=== PATIENT | male | born 1990 | race Caucasian/White ===

== ENCOUNTER 2018-02-16 12:07 | Inpatient (IN) | payer OTHER ==
[2018-02-16 13:10] VITALS: BMI 22.1
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
[2018-02-16] MEDS ORDERED: LOPERAMIDE HCL 2 MG CAPSULE PO PRN (16:02)
[2018-02-16] MEDS ORDERED: ACETAMINOPHEN 325 MG TABLET (FP) PO PRN (16:02)
[2018-02-16] MEDS ORDERED: hydrOXYzine PAMOATE 50 MG CAPSULE (FP) PO PRN (16:02)
[2018-02-16] MEDS ORDERED: guaiFENesin/D-METHORPHAN HB 10 ML UNIT-DOSE CUPS PO PRN (16:02)
[2018-02-16] MEDS ORDERED: chlordiazePOXIDE HCL 25 MG CAPSULE PO PRN (16:02)
[2018-02-16] MEDS ORDERED: NICOTINE POLACRILEX 2 MG GUM BC PRN (16:02)
[2018-02-16] MEDS ORDERED: MAGNESIUM CITRATE 300 ML BOTTLE PO PRN (16:02)
[2018-02-16] MEDS ORDERED: MAGNESIUM HYDROX 2400MG/30ML ORAL SUSPENSION 30 ML CUP PO PRN (16:02)
[2018-02-16] MEDS ORDERED: IBUPROFEN 400 MG TABLET (FP) PO PRN (16:02)
[2018-02-16] MEDS ORDERED: P-EPHED 60MG/TRIPROLIDI 2.5MG TABLET PO PRN (16:02)
[2018-02-16] MEDS ORDERED: MAG HYDROX/AL HYDROX/SIMETH 30 ML UNIT-DOSE CUP PO PRN (16:02)
[2018-02-16] MEDS ORDERED: chlordiazePOXIDE HCL 25 MG CAPSULE PO ONE (16:02)
[2018-02-16] MEDS ORDERED: MENTHOL/PHENOL 1 EACH UD MM PRN (16:02)
[2018-02-16] MEDS ORDERED: CYCLOBENZAPRINE HCL 10 MG TABLET (FP) PO PRN (16:05)
[2018-02-16] MEDS: chlordiazePOXIDE HCL 25 MG CAPSULE PO SCH ×2 (17:33→22:37)
[2018-02-16] MEDS: NICOTINE 21 MG/24 HOURS TOPICAL PATCH TD SCH (17:38)
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
[2018-02-16] MEDS ORDERED: MELATONIN 5 MG TABLETS PO PRN (22:00)
[2018-02-16] MEDS: traZODone HCL 100 MG TABLET (FP) PO SCH (22:37)
[2018-02-16] MEDS: THIAMINE HCL 100 MG TABLET (FP) PO SCH (22:37)
[2018-02-17 04:57] LABS: URINE APPEARANCE CLEAR; URINE BILIRUBIN NEGATIVE (<2.0 mg/dL); URINE BLOOD NEGATIVE (NEGATIVE); URINE COLOR YELLOW; URINE GLUCOSE (UA) NEGATIVE (NEGATIVE); URINE KETONE 2+ (NEGATIVE); URINE LEUK ESTERASE NEGATIVE (NEGATIVE); URINE NITRITE NEGATIVE (NEGATIVE)
[2018-02-17 05:29] LABS: URINE PROTEIN 1+ (NEGATIVE)
[2018-02-17 05:48] LABS: EPI CELLS RARE /HPF (FEW); URINE MUCUS MANY
[2018-02-17] MEDS: chlordiazePOXIDE HCL 25 MG CAPSULE PO SCH ×5 (06:06→22:13)
[2018-02-17 10:02] LABS: HEMATOCRIT 39.9 % (35.4-49); HEMOGLOBIN 13.5 GM/dL (11.7-16.9); MCH 30.8 pg (25.7-33.7); MEAN CELL VOLUME 90.6 fl (80-96); MEAN PLT VOLUME 8.7 fl (7.5-11.1); PLATELET COUNT 352 K/MM3 (134-434); RDW 12.7 % (11.9-15.9); WHITE BLOOD COUNT 8.8 K/mm3 (4.0-10.0)
[2018-02-17] MEDS: PRENATAL VITAMINS W/ FOLIC ACID TABLET (FP) PO SCH (10:28)
[2018-02-17] MEDS: NICOTINE 21 MG/24 HOURS TOPICAL PATCH TD SCH (10:31)
[2018-02-17 11:15] LABS: ANION GAP 4 (8-16); BLOOD UREA NITROGEN 9 mg/dL (7-18); CALCIUM 9.2 mg/dL (8.5-10.1); CHLORIDE 101 mmol/L (98-107); CO2 31 mmol/L (21-32); CREATININE 0.9 mg/dL (0.7-1.3); GLUCOSE,RANDOM 57 mg/dL (74-106); POTASSIUM 4.3 mmol/L (3.5-5.1); SGOT/AST 43 U/L (15-37); SODIUM 136 mmol/L (136-145)
[2018-02-17 11:42] LABS: ALK PHOS 70 U/L (45-117); BILIRUBIN,TOTAL 0.3 mg/dL (0.2-1.0); SGPT/ALT 81 U/L (12-78); TOT PROT 7.8 g/dl (6.4-8.2)
--- NOTE | 2018-02-17 12:29 | PN ---
[facility] CIWA - CIWA Score Nausea/Vomitin-No Nausea/No Vomiting Muscle Tremors: 4-Moderate,w/Arms Extend Anxiety: 4-Mod. Anxious/Guarded Agitation: 4-Moderately Restless Paroxysmal Sweats: 1-Minimal Palms Moist Orientation: 0-Oriented Tacttile Disturbances: 0-None Auditory Disturbances: 0-None Visual Disturbances: 0-None Headache: 0-None Present CIWA-Ar Total Score: 13 BHS Progress Note (SOAP) Subjective: ANXIETY,SWEATS,IRRITABILITY. Objective: 02/17/18 12:29 Vital Signs Temperature 96.9 F L 02/17/18 09:17 Pulse Rate 62 02/17/18 09:17 Respiratory Rate 18 02/17/18 09:17 Blood Pressure 90/64 02/17/18 09:17 O2 Sat by Pulse Oximetry (%) Laboratory Last Values WBC 8.8 K/mm3 (4.0-10.0) 02/17/18 06:00 RBC 4.40 M/mm3 (4.00-5.60) 02/17/18 06:00 Hgb 13.5 GM/dL (11.7-16.9) 02/17/18 06:00 Hct 39.9 % (35.4-49) 02/17/18 06:00 MCV 90.6 fl (80-96) 02/17/18 06:00 MCH 30.8 pg (25.7-33.7) 02/17/18 06:00 MCHC 34.0 g/dl (32.0-35.9) 02/17/18 06:00 RDW 12.7 % (11.9-15.9) 02/17/18 06:00 Plt Count 352 K/MM3 (134-434) 02/17/18 06:00 MPV 8.7 fl (7.5-11.1) 02/17/18 06:00 Sodium 136 mmol/L (136-145) 02/17/18 06:00 Potassium 4.3 mmol/L (3.5-5.1) 02/17/18 06:00 Chloride 101 mmol/L (98-107) 02/17/18 06:00 Carbon Dioxide 31 mmol/L (21-32) 02/17/18 06:00 Anion Gap 4 (8-16) L 02/17/18 06:00 BUN 9 mg/dL (7-18) 02/17/18 06:00 Creatinine 0.9 mg/dL (0.7-1.3) 02/17/18 06:00 Creat Clearance w eGFR > 60 (>60) 02/17/18 06:00 Random Glucose 57 mg/dL (74-106) L 02/17/18 06:00 Calcium 9.2 mg/dL (8.5-10.1) 02/17/18 06:00 Total Bilirubin 0.3 mg/dL (0.2-1.0) 02/17/18 06:00 AST 43 U/L (15-37) H 02/17/18 06:00 ALT 81 U/L (12-78) H 02/17/18 06:00 Alkaline Phosphatase 70 U/L (45-117) 02/17/18 06:00 Total Protein 7.8 g/dl (6.4-8.2) 02/17/18 06:00 Albumin 4.0 g/dl (3.4-5.0) 02/17/18 06:00 Urine Color Yellow 02/17/18 01:00 Urine Appearance Clear 02/17/18 01:00 Urine pH 5.0 (5.0-8.0) 02/17/18 01:00 Ur Specific [place] 1.029 (1.001-1.035) 02/17/18 01:00 Urine Protein 1+ (NEGATIVE) H 02/17/18 01:00 Urine Glucose (UA) Negative (NEGATIVE) 02/17/18 01:00 Urine Ketones 2+ (NEGATIVE) H 02/17/18 01:00 Urine Blood Negative (NEGATIVE) 02/17/18 01:00 Urine Nitrite Negative (NEGATIVE) 02/17/18 01:00 Urine Bilirubin Negative (<2.0 mg/dL) 02/17/18 01:00 Urine Urobilinogen 2.0 mg/dL (0.2-1.0) 02/17/18 01:00 Ur Leukocyte Esterase Negative (NEGATIVE) 02/17/18 01:00 Urine WBC (Auto) 3 /hpf (3-5) 02/17/18 01:00 Urine RBC (Auto) 2 /hpf (0-3) 02/17/18 01:00 Ur Epithelial Cells Rare /HPF (FEW) 02/17/18 01:00 Urine Mucus Many 02/17/18 01:00 Assessment: 02/17/18 12:29 WITHDRAWAL SX Plan: CONTINUE DETOX INCREASE PO FLUIDS
--- NOTE | 2018-02-17 13:08 | EKG ---
Test Reason : Blood Pressure : / mmHG Vent. Rate : 059 BPM Atrial Rate : 059 BPM P-R Int : 146 ms QRS Dur : 092 ms QT Int : 436 ms P-R-T Axes : 081 071 049 degrees QTc Int : 431 ms SINUS BRADYCARDIA OTHERWISE NORMAL ECG NO PREVIOUS ECGS AVAILABLE Confirmed by ALVARO WORKMAN, RUTH ([id number]) on 02/17/2018 1:08:14 PM Referred By: Confirmed By:RUTH JOHN MD
[2018-02-17] MEDS: traZODone HCL 100 MG TABLET (FP) PO SCH (22:13)
[2018-02-17] MEDS: THIAMINE HCL 100 MG TABLET (FP) PO SCH (22:13)
[2018-02-18] MEDS: chlordiazePOXIDE HCL 25 MG CAPSULE PO SCH ×2 (06:00→12:41)
--- NOTE | 2018-02-18 08:10 | PN ---
[facility] Progress Note Note: Patient's blood pressure was B/P 86/48. Patient is asymptomatic. Vital Signs Temperature 97.8 F 02/18/18 06:23 Pulse Rate 68 02/18/18 07:54 Respiratory Rate 18 02/18/18 07:54 Blood Pressure 94/59 02/18/18 07:54 O2 Sat by Pulse Oximetry (%) Action: Pitcher of water at bedside- Hydration Fall precaution
[2018-02-18] MEDS ORDERED: ONDANSETRON *ODT* 4 MG TABLET SL PRN (12:28)
[2018-02-18] MEDS: NICOTINE 21 MG/24 HOURS TOPICAL PATCH TD SCH (12:41)
[2018-02-18] MEDS: PRENATAL VITAMINS W/ FOLIC ACID TABLET (FP) PO SCH (12:41)
[2018-02-18] MEDS: NAPROXEN 375 MG TABLET (FP) PO SCH ×2 (14:06→22:42)
--- NOTE | 2018-02-18 17:50 | PN ---
S CIWA - CIWA Score Nausea/Vomitin-No Nausea/No Vomiting Muscle Tremors: 2 Anxiety: 5 Agitation: 4-Moderately Restless Paroxysmal Sweats: 3 Orientation: 2-Disoriented Date<2 days Tacttile Disturbances: 2-Mild Itch/Numbness/Burn Auditory Disturbances: 0-None Visual Disturbances: 2-Mild Sensitivity Headache: 0-None Present CIWA-Ar Total Score: 20 B[facility] Progress Note (SOAP) Subjective: Body Aches, Anxious, Sweating, Interrupted Sleep. Objective: PATIENT A & O X 2 (UNCERTAIN ABOUT CURRENT DAY / DATE). PATIENT OBSERVED AMBULATING ON UNIT. NO ACUTE DISTRESS. 02/18/18 17:49 Vital Signs Temperature 97.6 F 02/18/18 14:52 Pulse Rate 55 L 02/18/18 14:52 Respiratory Rate 18 02/18/18 14:52 Blood Pressure 94/55 02/18/18 14:52 O2 Sat by Pulse Oximetry (%) Laboratory Tests 02/17/18 02/17/18 02/17/18 01:00 06:00 06:00 WBC 8.8 RBC 4.40 Hgb 13.5 Hct 39.9 MCV 90.6 MCH 30.8 MCHC 34.0 RDW 12.7 Plt Count 352 MPV 8.7 Sodium 136 Potassium 4.3 Chloride 101 Carbon Dioxide 31 Anion Gap 4 L BUN 9 Creatinine 0.9 Creat Clearance w eGFR > 60 Random Glucose 57 L Calcium 9.2 Total Bilirubin 0.3 AST 43 H ALT 81 H Alkaline Phosphatase 70 Total Protein 7.8 Albumin 4.0 Urine Color Yellow Urine Appearance Clear Urine pH 5.0 Ur Specific [place] 1.029 Urine Protein 1+ H Urine Glucose (UA) Negative Urine Ketones 2+ H Urine Blood Negative Urine Nitrite Negative Urine Bilirubin Negative Urine Urobilinogen 2.0 Ur Leukocyte Esterase Negative Urine WBC (Auto) 3 Urine RBC (Auto) 2 Ur Epithelial Cells Rare Urine Mucus Many RPR Titer 02/17/18 06:00 WBC RBC Hgb Hct MCV MCH MCHC RDW Plt Count MPV Sodium Potassium Chloride Carbon Dioxide Anion Gap BUN Creatinine Creat Clearance w eGFR Random Glucose Calcium Total Bilirubin AST ALT Alkaline Phosphatase Total Protein Albumin Urine Color Urine Appearance Urine pH Ur Specific [place] Urine Protein Urine Glucose (UA) Urine Ketones Urine Blood Urine Nitrite Urine Bilirubin Urine Urobilinogen Ur Leukocyte Esterase Urine WBC (Auto) Urine RBC (Auto) Ur Epithelial Cells Urine Mucus RPR Titer Nonreactive LABS NOTED. Assessment: 02/18/18 17:49 WITHDRAWAL SYMPTOMS. Plan: CONTINUE DETOX. INCREASE DAILY PO FLUID INTAKE.
[2018-02-18] MEDS: chlordiazePOXIDE 5 MG CAPSULE PO SCH ×2 (17:51→23:20)
[2018-02-18] MEDS: traZODone HCL 100 MG TABLET (FP) PO SCH (22:43)
[2018-02-18] MEDS: THIAMINE HCL 100 MG TABLET (FP) PO SCH (22:43)
[2018-02-19] MEDS: chlordiazePOXIDE 5 MG CAPSULE PO SCH ×2 (06:56→10:24)
[2018-02-19] MEDS: NAPROXEN 375 MG TABLET (FP) PO SCH ×2 (10:23→22:37)
[2018-02-19] MEDS: PRENATAL VITAMINS W/ FOLIC ACID TABLET (FP) PO SCH (10:23)
[2018-02-19] MEDS: NICOTINE 21 MG/24 HOURS TOPICAL PATCH TD SCH (10:24)
--- NOTE | 2018-02-19 10:56 | PN ---
[facility] Progress Note (SOAP) Subjective: Body Aches, Fatigue, Sweating. Objective: PATIENT A & O X 3, OBSERVED AMBULATING ON UNIT. NO ACUTE DISTRESS. 02/19/18 10:54 Vital Signs Temperature 98.4 F 02/19/18 09:20 Pulse Rate 66 02/19/18 09:20 Respiratory Rate 18 02/19/18 09:20 Blood Pressure 98/70 02/19/18 09:20 O2 Sat by Pulse Oximetry (%) Laboratory Tests 02/17/18 02/17/18 02/17/18 01:00 06:00 06:00 WBC 8.8 RBC 4.40 Hgb 13.5 Hct 39.9 MCV 90.6 MCH 30.8 MCHC 34.0 RDW 12.7 Plt Count 352 MPV 8.7 Sodium 136 Potassium 4.3 Chloride 101 Carbon Dioxide 31 Anion Gap 4 L BUN 9 Creatinine 0.9 Creat Clearance w eGFR > 60 Random Glucose 57 L Calcium 9.2 Total Bilirubin 0.3 AST 43 H ALT 81 H Alkaline Phosphatase 70 Total Protein 7.8 Albumin 4.0 Urine Color Yellow Urine Appearance Clear Urine pH 5.0 Ur Specific [place] 1.029 Urine Protein 1+ H Urine Glucose (UA) Negative Urine Ketones 2+ H Urine Blood Negative Urine Nitrite Negative Urine Bilirubin Negative Urine Urobilinogen 2.0 Ur Leukocyte Esterase Negative Urine WBC (Auto) 3 Urine RBC (Auto) 2 Ur Epithelial Cells Rare Urine Mucus Many RPR Titer 02/17/18 06:00 WBC RBC Hgb Hct MCV MCH MCHC RDW Plt Count MPV Sodium Potassium Chloride Carbon Dioxide Anion Gap BUN Creatinine Creat Clearance w eGFR Random Glucose Calcium Total Bilirubin AST ALT Alkaline Phosphatase Total Protein Albumin Urine Color Urine Appearance Urine pH Ur Specific [place] Urine Protein Urine Glucose (UA) Urine Ketones Urine Blood Urine Nitrite Urine Bilirubin Urine Urobilinogen Ur Leukocyte Esterase Urine WBC (Auto) Urine RBC (Auto) Ur Epithelial Cells Urine Mucus RPR Titer Nonreactive LABS NOTED. Assessment: 02/19/18 10:54 WITHDRAWAL SYMPTOMS. Plan: CONTINUE DETOX. INCREASE DAILY PO FLUID INTAKE.
[2018-02-19] MEDS: chlordiazePOXIDE HCL 10 MG CAPSULE PO SCH ×2 (17:22→23:14)
[2018-02-19] MEDS: traZODone HCL 100 MG TABLET (FP) PO SCH (22:36)
[2018-02-19] MEDS: THIAMINE HCL 100 MG TABLET (FP) PO SCH (22:36)
[2018-02-20] MEDS: chlordiazePOXIDE HCL 10 MG CAPSULE PO SCH (05:19)
[2018-02-20 06:31] VITALS: BP 104/60; PULSE 78; TEMP 97
--- NOTE | 2018-02-20 16:39 | PN ---
S Progress Note (SOAP) Subjective: Patient denies current Detox symptoms and reports that he feels well overall. Objective: PATIENT A & O X 3, OBSERVED AMBULATING ON UNIT. NO ACUTE DISTRESS. 02/20/18 16:36 Vital Signs Temperature 97.0 F L 02/20/18 06:30 Pulse Rate 78 02/20/18 06:30 Respiratory Rate 18 02/20/18 06:30 Blood Pressure 104/60 02/20/18 06:30 O2 Sat by Pulse Oximetry (%) Laboratory Tests 02/17/18 02/17/18 02/17/18 01:00 06:00 06:00 WBC 8.8 RBC 4.40 Hgb 13.5 Hct 39.9 MCV 90.6 MCH 30.8 MCHC 34.0 RDW 12.7 Plt Count 352 MPV 8.7 Sodium 136 Potassium 4.3 Chloride 101 Carbon Dioxide 31 Anion Gap 4 L BUN 9 Creatinine 0.9 Creat Clearance w eGFR > 60 Random Glucose 57 L Calcium 9.2 Total Bilirubin 0.3 AST 43 H ALT 81 H Alkaline Phosphatase 70 Total Protein 7.8 Albumin 4.0 Urine Color Yellow Urine Appearance Clear Urine pH 5.0 Ur Specific [place] 1.029 Urine Protein 1+ H Urine Glucose (UA) Negative Urine Ketones 2+ H Urine Blood Negative Urine Nitrite Negative Urine Bilirubin Negative Urine Urobilinogen 2.0 Ur Leukocyte Esterase Negative Urine WBC (Auto) 3 Urine RBC (Auto) 2 Ur Epithelial Cells Rare Urine Mucus Many RPR Titer 02/17/18 06:00 WBC RBC Hgb Hct MCV MCH MCHC RDW Plt Count MPV Sodium Potassium Chloride Carbon Dioxide Anion Gap BUN Creatinine Creat Clearance w eGFR Random Glucose Calcium Total Bilirubin AST ALT Alkaline Phosphatase Total Protein Albumin Urine Color Urine Appearance Urine pH Ur Specific [place] Urine Protein Urine Glucose (UA) Urine Ketones Urine Blood Urine Nitrite Urine Bilirubin Urine Urobilinogen Ur Leukocyte Esterase Urine WBC (Auto) Urine RBC (Auto) Ur Epithelial Cells Urine Mucus RPR Titer Nonreactive LABS NOTED. Assessment: 02/20/18 16:37 COMPLETION OF DETOX REGIMEN. Plan: PATIENT SCHEDULED FOR DISCHARGE FROM DETOX TODAY. NO BEDS AVAILABLE AT [facility], PATIENT ADVISED TO CONTACT [facility] ADMISS[facility] DEPT. IN AM ON 02/22/2018, TO INQUIRE ABOUT POSSIBLE ADMISSION AT THAT TIME.
--- NOTE | 2018-02-20 16:45 | DS ---
[facility] Detox Discharge Summary Admission Date: 02/16/18 Discharge Date: 02/20/18 - History Present History: Alcohol Dependence, Cannabis Dependence, Cocaine Dependence Additional Comments: NO BEDS AVAILABLE AT [facility], PATIENT ADVISED TO CONTACT [facility] ADMISSIONS DEPT. IN AM ON 02/22/2018, TO INQUIRE ABOUT POSSIBLE ADMISSION AT THAT TIME. PATIENT WAS DISCHARGED FROM DETOX UNIT NI STABLE MEDICAL CONDITION. Pertinent Past History: Nicotine Dependence, Depression, Anxiety, Insomnia, Syncope, Weight Loss. - Physical Exam Results Vital Signs: Vital Signs Temperature 97.0 F L 02/20/18 06:30 Pulse Rate 78 02/20/18 06:30 Respiratory Rate 18 02/20/18 06:30 Blood Pressure 104/60 02/20/18 06:30 O2 Sat by Pulse Oximetry (%) Pertinent Admission Physical Exam Findings: WITHDRAWAL SYMPTOMS. Laboratory Tests 02/17/18 02/17/18 02/17/18 01:00 06:00 06:00 WBC 8.8 RBC 4.40 Hgb 13.5 Hct 39.9 MCV 90.6 MCH 30.8 MCHC 34.0 RDW 12.7 Plt Count 352 MPV 8.7 Sodium 136 Potassium 4.3 Chloride 101 Carbon Dioxide 31 Anion Gap 4 L BUN 9 Creatinine 0.9 Creat Clearance w eGFR > 60 Random Glucose 57 L Calcium 9.2 Total Bilirubin 0.3 AST 43 H ALT 81 H Alkaline Phosphatase 70 Total Protein 7.8 Albumin 4.0 Urine Color Yellow Urine Appearance Clear Urine pH 5.0 Ur Specific [place] 1.029 Urine Protein 1+ H Urine Glucose (UA) Negative Urine Ketones 2+ H Urine Blood Negative Urine Nitrite Negative Urine Bilirubin Negative Urine Urobilinogen 2.0 Ur Leukocyte Esterase Negative Urine WBC (Auto) 3 Urine RBC (Auto) 2 Ur Epithelial Cells Rare Urine Mucus Many RPR Titer 02/17/18 06:00 WBC RBC Hgb Hct MCV MCH MCHC RDW Plt Count MPV Sodium Potassium Chloride Carbon Dioxide Anion Gap BUN Creatinine Creat Clearance w eGFR Random Glucose Calcium Total Bilirubin AST ALT Alkaline Phosphatase Total Protein Albumin Urine Color Urine Appearance Urine pH Ur Specific [place] Urine Protein Urine Glucose (UA) Urine Ketones Urine Blood Urine Nitrite Urine Bilirubin Urine Urobilinogen Ur Leukocyte Esterase Urine WBC (Auto) Urine RBC (Auto) Ur Epithelial Cells Urine Mucus RPR Titer Nonreactive LABS NOTED. - Treatment Hospital Course: Detox Protocol Followed, Detoxed Safely, Responded well, Discharged Condition Good, Rehab Referral Accepted Patient has Accepted a Rehab Referral to: [facility] ([place], [place] . - Medication Discharge Medications: Ambulatory Orders NK [No Known Home Medication] 02/16/18 - Diagnosis (1) Alcohol dependence with uncomplicated withdrawal Status: Acute (2) Cannabis dependence Status: Acute (3) Cocaine dependence Status: Acute Qualifiers: Substance use status: uncomplicated Qualified Code(s): F14.20 - Cocaine dependence, uncomplicated (4) Insomnia secondary to depression with anxiety Status: Acute (5) Nicotine dependence Status: Acute Qualifiers: Nicotine product type: cigarettes Substance use status: in withdrawal Qualified Code(s): F17.213 - Nicotine dependence, cigarettes, with withdrawal (6) Syncope Status: Acute Qualifiers: Syncope type: unspecified Qualified Code(s): R55 - Syncope and collapse (7) Weight loss Status: Acute (8) Insomnia Status: Acute Qualifiers: Insomnia type: unspecified Qualified Code(s): G47.00 - Insomnia, unspecified - AMA Did Patient Leave Against Medical Advice: No
== END 2018-02-20 09:30 | disposition home or self-care (01) | DRG 774 ==
LOC: YASAS 12:07 → Y3N 16:20
PROVIDERS: ADMIT Internal Medicine; ATTEND Internal Medicine
PROC: HZ2ZZZZ Detoxification Services for Substance Abuse Treatment (ICD-10-PCS; principal; 2018-02-16)
DX: F10.230 Alcohol dependence with withdrawal, uncomplicated (principal); F14.20 Cocaine dependence, uncomplicated; F12.20 Cannabis dependence, uncomplicated; F17.210 Nicotine dependence, cigarettes, uncomplicated; F51.05 Insomnia due to other mental disorder; R55 Syncope and collapse; R63.4 Abnormal weight loss; Z68.22 Body mass index [BMI] 22.0-22.9, adult
CPT/HCPCS: 36415; 80053; 81003; 81015; 85027; 86593; 93005; 93010